=== PATIENT | female | born 1960 | race Caucasian/White ===

== ENCOUNTER → 2019-12-20 14:34 | Outpatient (CLI) | payer BC, SELFPAY ==
--- NOTE | ~2019-12-20 | XR_ITS ---
XR ankle RT min 3V 12/20/2019 15:10 Indication: Ankle pain Procedure: 4 views of each ankle Comparison: No prior studies for comparison. Findings: Osteopenia. Ankle mortise intact bilaterally. No acute fracture or traumatic malalignment. There are degenerative calcaneal enthesophytes bilaterally at the plantar surface. Anatomic alignment . Mild degenerative changes of the midfoot. No focal soft tissue abnormality. No radiopaque foreign b odies. Impression: 1: No acute bone or joint abnormality. 2: Bilateral degenerative calcaneal enthesophytes. 3: Osteopenia. Reviewed, dictated and finalized at location B. UNITY SERVICES OFFICER Impression: 1: No acute bone or joint abnormality. 2: Bilateral degenerative calcaneal enthesophytes. 3: Osteopenia.
--- NOTE | ~2019-12-20 | XR_ITS ---
EXAMINATION: XR ankle LT min 3V EXAM DATE: 12/20/2019 15:10 INDICATION: No known recent injury provided at this time. Pain of the left ankle. TECHNIQUE: Left ankle frontal, lateral and oblique projections obtained and reviewed. Correlation is made to contralateral ankle same date. FINDINGS: The left ankle mortise appears intact. There is mild left ankle and polyarticular midfoot primary osteoarthritis. Small inferior calcaneal spur. There are no acute fractures or dislocations identified. There is no subcutaneous gas. The soft tissue is unremarkable. There are no radiopaq ue foreign bodies. IMPRESSION: Mild degenerative changes. Reviewed, dictated and finalized at location A. Y BUS DRIVER IMPRESSION: Mild degenerative changes.
--- NOTE | ~2019-12-20 | XR_ITS ---
XR knee LT min 4V, XR knee RT min 4V 12/20/2019 15:09 Indication: Knee pain. No known trauma. Procedure: 4 views of each knee Comparison: No prior studies for comparison. Findings: There is mild-severe tricompartment osteoarthritis of both knees, most advanced in the medi al compartments bilaterally. No acute fracture, subluxation or dislocation. No significant joint effu srikanth. Impression: 1: Mild-severe tricompartment osteoarthritis of bilateral knees, most severe in the medial compartmen ts. Reviewed, dictated and finalized at location B. OT GRADER INSPECTOR Impression: 1: Mild-severe tricompartment osteoarthritis of bilateral knees, most severe in the medial compartments. Impression: 1: Mild-severe tricompartment osteoarthritis of bilateral knees, most severe in the medial compartments.
== END ==
PROVIDERS: Visit Provider Nurse Practitioner Adult Health
DX: M17.0 Bilateral primary osteoarthritis of knee (principal); M85.871 Other specified disorders of bone density and structure, right ankle and foot
CPT/HCPCS: 73564; 73610

== ENCOUNTER → 2022-03-05 13:37 | Outpatient (CLI) | payer BC, SELFPAY ==
--- NOTE | ~2022-03-05 | MM_ITS ---
EXAMINATION: MM screening [facility] BI w araceli HISTORY: Screening mammogram TECHNIQUE: Craniocaudal and mediolateral oblique 3-D tomosynthesis images were obtained and synthetic 2-D images were generated. CAD analysis was submitted and interpreted. COMPARISON: 07/01/2019, 10/29/2016, 10/17/2015 BREAST PARENCHYMAL COMPOSITION: There are scattered areas of fibroglandular density. FINDINGS: RIGHT BREAST: There is no suspicious mass, calcification, or architectural distortion to suggest sergei gnancy. There has been no significant interval change. LEFT BREAST: There are grouped indeterminate calcifications middle third of the upper outer quadrant of the breast. IMPRESSION: 1. Indeterminate left breast calcifications. 2. Magnification views are recommended. BI-RADS Category 0: Incomplete: Needs additional imaging evaluation. Reviewed, dictated and finalized at location A.
== END ==
PROVIDERS: PCP Nurse Practitioner Obstetrics & Gynecology; Visit Provider Nurse Practitioner Obstetrics & Gynecology
DX: Z12.31 Encounter for screening mammogram for malignant neoplasm of breast (principal); R92.8 Other abnormal and inconclusive findings on diagnostic imaging of breast
CPT/HCPCS: 77063; 77067

== ENCOUNTER → 2022-03-25 08:42 | Outpatient (CLI) | payer BC, SELFPAY ==
--- NOTE | ~2022-03-25 | MM_ITS ---
EXAMINATION: MM diagnostic mammo unilat LT HISTORY: Left breast calcifications on screening mammogram TECHNIQUE: Magnification views of the left breast were performed. CAD analysis was submitted and inte rpreted. COMPARISON: 03/05/2022, 07/01/2019, 10/29/2016 FINDINGS: There are grouped coarse heterogeneous calcifications in the middle third of the upper oute r quadrant of the left breast at the 2:00 location 8.5 cm from the nipple. No associated mass is iden tified. IMPRESSION: 1. Indeterminate left breast calcifications. 2. Stereotactic biopsy is recommended. BI-RADS category 4, suspicious findings. Reviewed, dictated and finalized at location A.
== END ==
PROVIDERS: PCP Nurse Practitioner Obstetrics & Gynecology; Visit Provider Nurse Practitioner Obstetrics & Gynecology
DX: R92.8 Other abnormal and inconclusive findings on diagnostic imaging of breast (principal)
CPT/HCPCS: 77065

== ENCOUNTER → 2022-09-16 12:00 | Outpatient (CLI) | payer BC, SELFPAY ==
--- NOTE | ~2022-09-16 | XR_ITS ---
XR hip RT 2V w AP pelvis DATE: 09/16/2022 12:19 INDICATION: Right hip pain TECHNIQUE: AP pelvis. AP and lateral views of right hip COMPARISON: None FINDINGS: There is osteopenia. Moderate to moderately severe multilevel lumbar degenerative disc disease. The pubic symphysis and sacroiliac joints are intact. No pelvic fracture or bone destruction is detec shon. There is asymmetric prominent right hip joint space narrowing civil engineering assistant with moderate right hip osteo arthritis. IMPRESSION: Moderately prominent right hip osteoarthritis Osteopenia Multilevel degenerative disease of the lumbar spine Reviewed, dictated and finalized at location B. HEALTH TRAVEL OT
== END ==
PROVIDERS: PCP Internal Medicine; Visit Provider Physician Assistant
DX: M25.551 Pain in right hip (principal); M16.11 Unilateral primary osteoarthritis, right hip; M85.80 Other specified disorders of bone density and structure, unspecified site; M51.36 Other intervertebral disc degeneration, lumbar region
CPT/HCPCS: 73502

== ENCOUNTER → 2023-05-12 12:02 | Outpatient (CLI) | payer BC, SELFPAY ==
--- NOTE | ~2023-05-12 | MM_ITS ---
EXAMINATION: MM screening [facility] BI w araceli HISTORY: Screening mammogram TECHNIQUE: Craniocaudal and mediolateral oblique 3-D tomosynthesis images were obtained and synthetic 2-D images were generated. CAD analysis was submitted and interpreted. COMPARISON: No prior mammogram is available for comparison at this institution. BREAST PARENCHYMAL COMPOSITION: There are scattered areas of fibroglandular density. FINDINGS: Occasional benign calcifications. History of benign*detected biopsy of left breast microcal cifications in 2021. There is no evidence of suspicious mass, calcification, or architectural distort ion to suggest malignancy in either breast. There has been no suspicious interval change. IMPRESSION: 1. No mammographic evidence of malignancy. 2. Recommend routine screening mammography in one year. BI-RADS Category 2: Benign finding(s). Reviewed, dictated and finalized at location L.
== END ==
PROVIDERS: PCP Nurse Practitioner Obstetrics & Gynecology; Visit Provider Nurse Practitioner Obstetrics & Gynecology
DX: Z12.31 Encounter for screening mammogram for malignant neoplasm of breast (principal)
CPT/HCPCS: 77063; 77067

== ENCOUNTER 2023-10-27 10:52 | Outpatient (CLI) | payer BC, SELFPAY ==
--- NOTE | ~2023-10-27 | XR_ITS ---
XR knee RT min 4V DATE: 10/27/2023 11:22 INDICATION: Right knee pain TECHNIQUE: [place] and standing AP, PA and lateral views COMPARISON: November 26, 2022 right knee FINDINGS: There is severe medial, joint space narrowing with near [id number]. There is periarticula r spurring at all 3 compartments. Lateral compartment joint space is relatively preserved. No fracture or dislocation, periosteal reaction or bone destruction, radiopaque intra-articular loose body or chondrocalcinosis is detected. IMPRESSION: Tricompartment osteoarthritis, severe at the medial compartment with near [id number] Reviewed, dictated and finalized at location L. SELLER IMPRESSION: Tricompartment osteoarthritis, severe at the medial compartment wit h near [id number]
--- NOTE | ~2023-10-27 | XR_ITS ---
XR hip RT min 2V DATE: 10/27/2023 11:22 INDICATION: Right hip pain TECHNIQUE: AP and lateral views COMPARISON: November 26, 2022 AP pelvis, AP and lateral views of right hip FINDINGS: There is degenerative spurring and severe right hip joint space narrowing consistent with s evere right hip osteoarthritis. Osteopenia. No fracture, dislocation, avascular necrosis or bone destruction is detected. Normal alignment at the pubic symphysis and right sacroiliac joint. IMPRESSION: Severe right hip osteoarthritis Reviewed, dictated and finalized at location L. CTOR BUSINESS TRAVEL
--- NOTE | ~2023-10-27 | XR_ITS ---
XR knee LT min 4V DATE: 10/27/2023 11:22 INDICATION: Left knee pain TECHNIQUE: Standing AP, PA, lateral views, sunrise view COMPARISON: 01/16/2020 left knee FINDINGS: There is severe loss of medial compartment joint space with [id number]. There is periarti cular spurring at the medial and patellofemoral compartments. There is mild periarticular spurring at the lateral compartment. Lateral compartment joint space appears well preserved. Small suprapatellar knee joint effusion is suggested. No fracture or dislocation, periosteal reaction or bone destruction, radiopaque intra-articular loose body or chondrocalcinosis is detected. IMPRESSION: Tricompartment osteophytes, most severe at medial compartment with [id number] Reviewed, dictated and finalized at location L. E SYSTEMS ENGINEER IMPRESSION: Tricompartment osteophytes, most severe at medial compartment with [id number]
== END 2023-10-27 10:53 | disposition home or self-care (01) ==
PROVIDERS: PCP Nurse Practitioner Obstetrics & Gynecology; Visit Provider Orthopaedic Surgery
DX: M16.11 Unilateral primary osteoarthritis, right hip (principal); M17.11 Unilateral primary osteoarthritis, right knee; M25.762 Osteophyte, left knee; M25.551 Pain in right hip; M25.562 Pain in left knee; M25.561 Pain in right knee
CPT/HCPCS: 73502; 73564

== ENCOUNTER 2023-11-04 12:54 | Outpatient (CLI) | payer BC, SELFPAY ==
--- NOTE | 2023-11-04 13:27 | ECG_ITS ---
Measurements Intervals [place] Rate: 60 P: 56 [place]: 160 QRS: 24 QRSD: 102 T: 23 QT: 431 QTc: 431 Interpretive Statements SINUS RHYTHM LOW QRS VOLTAGE IN PRECORDIAL LEADS BORDERLINE ECG NO PREVIOUS ECG AVAILABLE FOR COMPARISON Electronically Signed On 11-04-2023 13:56:23 FLATWORK ASSEMBLER by Gadiel Sandoval D.O.
[2023-11-04 14:08] LABS: Albumin Level 4.4 g/dL (3.5-5.1); Estimated Glomerular Filt Rate > 60; Glucose 76 mg/dL (65-110)
[2023-11-04 14:23] LABS: Hematocrit 42.9 % (37.0-47.0); Hemoglobin 13.6 g/dL (12.0-15.0)
[2023-11-04 15:11] LABS: Urine Cotinine NEGATIVE
== END 2023-11-04 12:55 | disposition home or self-care (01) ==
PROVIDERS: Visit Provider Orthopaedic Surgery
DX: E78.5 Hyperlipidemia, unspecified (principal); M16.11 Unilateral primary osteoarthritis, right hip; R94.31 Abnormal electrocardiogram [ECG] [EKG]
CPT/HCPCS: 80307; 82040; 82565; 82947; 85014; 85018; 93005

== ENCOUNTER 2024-01-08 11:58 | Outpatient (CLI) | payer BC, SELFPAY ==
[2024-01-08 13:23] LABS: Basophils Absolute Auto 0.1 K/mm3 (0.0-0.1); Basophils Percent Auto 0.8 % (0.2-1.2); Eosinophils Absolute Auto 0.7 K/mm3 (0-0.3); Eosinophils Percent Auto 7.8 % (0-4.4); Hematocrit 40.2 % (37.0-47.0); Hemoglobin 13.4 g/dL (12.0-15.0); Immature Granulocyte Absolute 0.03 K/mm3 (0.00-0.031); Immature Granulocyte Percent A 0.3 % (0-0.5); Lymphocytes Absolute Auto 2.68 K/mm3 (0.9-3.2); Lymphocytes Percent Auto 29.8 % (18.3-44.2); Mean Corpuscular HGB Conc 33.3 g/dl (32-36); Mean Corpuscular Hemoglobin 33.7 pg (26-34); Mean Platelet Volume 10.6 fl (7.4-10.4); Monocytes Absolute Auto 0.5 K/mm3 (0.1-0.6); Monocytes Percent Auto 5.7 % (2.6-8.5); Neutrophils Percent Auto 55.6 % (45.5-73.1); Platelet Count Result 243 k/mm3 (150-375); Red Blood Count 3.98 M/mm3 (4.2-5.4); Red Cell Distribution Width 12.6 % (11.5-14.5)
[2024-01-08 13:33] LABS: Albumin Level 4.6 g/dL (3.5-5.1); Estimated Glomerular Filt Rate > 60; Glucose 90 mg/dL (65-110)
[2024-01-08 14:32] LABS: MRSA (PCR) NOT DETECTED (NOT DETECTE)
[2024-01-08 15:03] LABS: Urine Cotinine NEGATIVE
== END 2024-01-08 11:59 | disposition home or self-care (01) ==
LOC: ANHSURGERY 12:01
PROVIDERS: Visit Provider Orthopaedic Surgery
DX: M16.11 Unilateral primary osteoarthritis, right hip (principal); Z01.818 Encounter for other preprocedural examination
CPT/HCPCS: 80307; 82040; 82565; 82947; 83036; 85025; 87641

== ENCOUNTER 2024-02-02 00:22 | Day surgery (SDC) | payer BC, SELFPAY ==
[2024-01-08 12:07] VITALS: BMI 39.9
--- NOTE | 2024-01-08 12:29 | PC.NURSE ---
Report to the Outpatient Waiting Room, entrance under the green pavilion located off [facility], at time __0600 on date _02/02/24 . Planned Procedure Time: ____729___. Time changes happen often and if your time is changed the preop area will call you the afternoon before. - You and your visitor will be asked to self-screen and do not enter if you have any COVID symptoms. - A mask is optional within the hospital at this time. Patients may have clear liquids (water, carbonated beverages, clear teas, apple juice) until 3 hours prior to surgery ( 4:30 am)with a maximum of 20 ounces. - No food from midnight until time of surgery - Infants may have breast milk until 4 hours before surgery, infant formula 6 hours prior to surgery. - Children will be allowed to drink immediately following surgery. If applicable, please bring a bottle or sippy cup to assist with drinking. Juice, water, soda, and popsicles are readily available. For infants on formula, please bring formula the day of surgery. Pacifiers are allowed. Take the following medications with a SIP of water the morning of surgery: ____NONE DO NOT STOP ANY OF YOUR OTHER PRESCRIPTION MEDICATIONS PRIOR TO SURGERY ?EXCEPT THE FOLLOWING Medications to discontinue per physician HOLD IBUPROFEN 7 DAYS PRE OP PER DR CARRANZA.LAST DOSE 01/25/24 MAY TAKE TYLENOL IF NEEDED FOR PAIN Please no make-up, nail indian, hairspray, perfume, deodorant, or body powder the day of surgery. No jewelry (including any body piercings) or valuables the day of surgery, leave them at home. Please take a shower or bath the night before, or the morning of, surgery with an antibacterial soap. Wear comfortable, loose fitting clothing. Children are encouraged to wear pajamas. - Jewelry must be removed prior to entering the operating room. Rings and piercings that are not removed may be cut off. - The hospital will not accept responsibility for valuables. - Please leave all valuables, including medications, at home the day of surgery. If you are going home after surgery, a licensed dedicated local truck driver must drive you home. - NO public transportation without another adult if you receive anesthesia. - We recommend that an adult stay with you for 24 hours following discharge. - We also recommend that you do not drive, make important decision, drink alcoholic beverages, or take any drugs that were not prescribed by your health care provider for at least 24 hours after your discharge time. Follow any additional instructions given to you from your surgeon. If you or anyone in your household have experienced Covid symptoms in the past week, please notify your surgeon or the nurse liaison at the phone number below for possible testing. VERBAL AND WRITTEN instructions given to __PATIENT AND SPOUSE DAVID and asked if any additional questions and then verbalized understanding. Patient advised to call surgeon office or pre surgery nurse liaison [phone] if any additional questions.
[2024-01-08 12:47] VITALS: BP 177/78; PULSE 60; RESP 18; TEMP 36.7; O2SAT 97
[2024-02-02] VITALS (15 sets, daily range): BP systolic 124–169; BP diastolic 65–94; PULSE 61–90; RESP 10–20; TEMP 36.1–36.6; O2SAT 90–100
--- NOTE | ~2024-02-02 | XR_ITS ---
EXAMINATION: XR hip RT min 2V DATE: 02/02/2024 12:07 INDICATION: Right total hip arthroplasty TECHNIQUE: 2 views right hip FINDINGS: There is a right total hip arthroplasty in expected position. Subcutaneous gas with soft t issue swelling are consistent with recent surgery. IMPRESSION: 1. Recent right total hip arthroplasty. Reviewed, dictated and finalized at location B.
[2024-02-02] MEDS: LACTATED RINGERS 1,000 ML 30 ML IV CONT ×3 (08:50→12:39)
--- NOTE | 2024-02-02 09:06 | WPDHPUPDATE1 ---
History and Physical Update Update Date/Time: 02/02/24 09:06 History and Physical has been reviewed, including an updated exam of the patient. There are NO changes in the patient's condition. Risks, benefits, and alternatives have been discussed and questions answered. Patient agrees to proceed with procedure. Correct operative side is right.
--- NOTE | 2024-02-02 09:24 | WPDANESEPPF ---
Anes - Initial Pre Proc Eval Procedure: Operation Date: 02/02/24 10:30 Proposed Procedures p Right Total Hip Arthroplasty - Adam Guerra MD Date/Time: 02/02/24 09:24 Surgeon: Adam Guerra MD Pre Op Diagnosis: primary oa right hip Patient Data Age: 63 Gender: F Height: 1.6 m Weight: 102.1 kg Last Vital Signs Temp 98.0 F 01/08/24 12:47 Pulse 60 01/08/24 12:47 Resp 18 01/08/24 12:47 BP 177/78 H 01/08/24 12:47 Pulse Ox 97 01/08/24 12:47 O2 Del Method Room Air 01/08/24 12:47 Allergies Allergy/AdvReac Type Severity Reaction Status Date / Time No Known Allergies Allergy Verified 01/08/24 12:09 Home Medications Medication Instructions Recorded Confirmed Type bupropion HCl 300 mg 24 hr tablet, 300 mg PO PRN PRN TO HELP STOP 11/11/22 02/02/24 History extended release SMOKING ibuprofen 800 mg tablet 800 mg PO Q6H PRN Pain 01/08/24 02/02/24 History aspirin 81 mg tablet,delayed 81 mg PO BID 14 days #28 tabs 02/02/24 Rx release oxycodone-acetaminophen 5 mg-325 1 - 2 tablet PO Q4-6H PRN pain #30 02/02/24 Rx mg tablet tabs Patient hx anesthesia problems: none Family hx anesthesia problems: none Results Review: All pre-operative results and documents have been reviewed as part of the pre-operative evaluation. [facility] Past Medical History Medical History Acute constipation Anxiety Arthritis Fatigue History of stress test Hyperlipemia Night sweats Shortness of breath Surgical History Surgical History H/O colposcopy with cervical biopsy (~01/2022) History of tooth extraction Hx of breast biopsy (~04/2022) Hx of cholecystectomy (~05/2000) Family History Family History Sibling Family history of lung cancer Asthma Mother Family history of primary malignant neoplasm of liver Social History Social History Smoking packs per day: 1.5 Smoking cigarettes per day: 30.0 Years smoked: 29 Smoking pack-years: 43.50 Smoking status: Former smoker Tobacco type: cigarettes Smoking end date: 10/19/20 Additional smoking assessment comments: DENIES ANY FORM OF TOBACCO USE Alcohol intake: current Drinks per week: 8 Do You Feel Safe in your Home?: Yes Lack of Transportation: No Lack of Food: Never True Current Housing: I Have Housing Concerned About Future Housing: No Difficulty Paying Gas/Electric Bills: No Difficulty Paying for Meds: No Currently Unemployed: No Education: Associate Degree Difficulty w/ Childcare or Family Care: No Living arrangements: with family Spiritual care concerns: No Anes - Eval Final PreProcedure Day of Procedure 02/02/24 09:24 Patient weight: obese Heart: regular rate and rhythm Lungs: clear to auscultation Airway: Mallampati scale Neurological: alert and oriented Last oral intake: >/= 8 hours ASA classification: III Emergent: no Anesthetic plan: proceed Anesthesia type and monitoring: general ETT and standard monitoring Results Review: All pre-operative results and documents have been reviewed as part of the pre-operative evaluation. Hyperlipidemia. Pt reports stress test approx 2010 nml. No interval change in cp or sob, exercise tolerance limited by hip/knee pain. Informed Consent: The patient's anesthetic plan and its attendant risks and benefits were discussed with the patient/family/POA. Questions were solicited and answers provided to the satisfaction of the patient/family/POA.
[2024-02-02] MEDS: TRANEXAMIC ACID 1,000MG/ISO100 1,000 MG/100 ML BAG 200 MG IVPB (09:38)
[2024-02-02] MEDS: ceFAZolin 2 GM/D5W 50 ML 2 GM/50 ML BAG IVPB ×2 (10:00→17:02)
[2024-02-02] MEDS: SODIUM CHLORIDE 0.9% IV 37.7 ML, MORPHINE SULFATE INJ (*CRX) 2 MG, ROPivacaine HCL 1% 2... INFILTRATE (10:33)
--- NOTE | 2024-02-02 11:37 | W.PM.PROC2 ---
Procedure Note - Detailed Date of Procedure 02/02/24 Pre-op Diagnosis primary oa right hip Post-op Diagnosis Same Procedure Performed Right Total Hip Arthroplasty Surgeon Adam Guerra MD [employer] Puja Garrison PA-C Anesthesia General Findings Morbid obesity. Bone quality satisfactory. Prevena negative pressure wound dressing placed to address high risk of wound complications. Description of Procedure The patient was given preoperative antibiotics. A general anesthetic was administered. The patient was carefully placed in the lateral decubitus position on the PEG board. The shoulders and hips were carefully positioned for component and leg length positioning reference. The hip was prepped and draped in the usual sterile fashion. A longitudinal incision was created over the posterior aspect of the greater trochanter. Careful dissection was brought down through the deep fascia with electrocautery. A minimally invasive optimized posterior approach to the hip was performed. The short external rotators and capsule were taken down in an L-shaped capsulotomy. The tissue was tagged for later repair using number 2 high strength suture. The femoral neck was measured and taken in situ. The femoral head was removed. The acetabulum was carefully exposed. The inferior capsule was released. The labrum was resected. The acetabulum was sequentially reamed to the intended cup size. The cup was impacted into position with excellent press-fit. Typical anatomic landmarks, including the bony contact points as well as the inferior transverse acetabular ligament were used to confirm cup positioning with preoperative templating. Attention was turned to the femur, which was carefully exposed. The hip was reamed and then broached sequentially. Excellent press-fit was obtained with the broach. The hip was trialed. Measurements were utilized, including the lesser trochanter as well as the center of the femoral head and the tip of the trochanter, and excellent assessment of the offset and leg lengths were confirmed. The real component was impacted into position. Trialing confirmed appropriate leg length and offset with soft tissue balancing as well apparent feel of the leg, both at the knee and the heel. Soft tissues were assessed using the the iliotibial band. Reduction of the posterior capsule and external rotators were also used as a secondary assessment. The hip was copiously irrigated with pulsatile lavage periodically throughout the procedure. The real components were then assembled and reduced. The hip was stable throughout typical maneuvers, including extension, external rotation to 70 degrees, the position of sleep as well as flexion to 90 degrees with internal rotation past 35 degrees. The shake test confirmed stability without impingement. Osteophytes were removed as necessary. The short external rotators and capsule were repaired back to the posterior trochanter through drill holes. The deep fascia was repaired with running number 2 barbed suture, followed by 2-0 Stratafix suture and 3-0 Stratafix suture in the dermis. Steri-Strips were placed on the skin, followed by a sterile occlusive dressing. There were no complications. Meticulous hemostasis was maintained with the AquaMantys device. The patient was brought to the recovery room in stable condition. There were no complications. Physician after school program assistant, Puja Garrison PA-C, required for surgery; including patient positioning, draping, tissue retraction, maintaining instrument position, hip dislocation/ relocation, wound closure, and dressing placement. Implants The Accolade II hip stem, 127 degree size 4 , was utilized with excellent press-fit. The 48 mm Trident II acetabular component was impacted with excellent press-fit stability. Standard polyethylene liner the +0, 36 mm Biolox ceramic femoral head was utilized. Estimated Blood Loss 300 Drains No Packing No Pathology None sent Com
[2024-02-02] MEDS: fentaNYL CITRATE INJ (*CRX) 100 MCG/2 ML VIAL 25 MCG IV PUSH ×8 (12:00→12:25)
[2024-02-02] MEDS: HYDROmorphone HCL INJ (*CRX) 1 MG/ML SYR 0.25 MG IV PUSH ×8 (12:41→13:19)
--- NOTE | 2024-02-02 13:23 | SUR.PHASEI ---
pt resting comfortably. family informed. taking pt upstairs.
--- NOTE | 2024-02-02 13:35 | ADMGEN ---
This patient, Karissa Manning, was admitted to [facility] Room 324-02. Patient/family oriented to hospital policies and general routines including ID bracelet, bed and alarms, visiting hours, pain management, procedures, bathroom and other care routines, personal items, smoking policy, room service/diet, and visiting hours. Information on how to activate the Rapid Response Team has been discussed. Patient/Family are encouraged to report perceived risks to care and to ask questions if they do not understand what they are told or what they should do.
[2024-02-02] MEDS: SENNA/DOCUSATE SODIUM TABLET 2 TAB PO (17:02)
[2024-02-02] MEDS: ASPIRIN 81 MG ENTERIC TABLET PO (17:02)
[2024-02-02] MEDS: oxyCODONE HCL (*CRX) 5 MG TAB IR PO (17:03)
[2024-02-02] MEDS: ACETAMINOPHEN 500 MG TABLET 1000 MG PO ×2 (17:03→20:19)
[2024-02-02] MEDS: CYCLOBENZAPRINE HCL 10 MG TABLET PO (17:03)
[2024-02-02] MEDS: oxyCODONE HCL (*CRX) 5 MG TAB IR 10 MG PO (20:19)
[2024-02-02] MEDS: FAMOTIDINE 20 MG TABLET PO (20:19)
[2024-02-02] MEDS: traMADol HCL (*CRX) 50 MG TABLET PO (22:41)
[2024-02-03] MEDS: oxyCODONE HCL (*CRX) 5 MG TAB IR 10 MG PO ×3 (00:26→08:22)
[2024-02-03] MEDS: ACETAMINOPHEN 500 MG TABLET 1000 MG PO ×2 (03:02→08:22)
[2024-02-03] MEDS: ceFAZolin 2 GM/D5W 50 ML 2 GM/50 ML BAG IVPB ×2 (03:08→09:40)
[2024-02-03] MEDS: SODIUM CHLORIDE 0.9% IV 250 ML 20 ML (03:08)
[2024-02-03] MEDS: diphenhydrAMINE HCl INJ 50 MG/ML VIAL 25 MG IV PUSH (03:08)
[2024-02-03] MEDS: CYCLOBENZAPRINE HCL 10 MG TABLET PO (03:09)
[2024-02-03 03:10] VITALS: BP 133/71; PULSE 73; RESP 18; TEMP 36.6; O2SAT 99
[2024-02-03 06:35] LABS: Basophils Percent Auto 0.3 % (0.2-1.2); Eosinophils Absolute Auto 0.1 K/mm3 (0-0.3); Eosinophils Percent Auto 0.5 % (0-4.4); Hematocrit 35.2 % (37.0-47.0); Hemoglobin 10.9 g/dL (12.0-15.0); Immature Granulocyte Absolute 0.05 K/mm3 (0.00-0.031); Immature Granulocyte Percent A 0.5 % (0-0.5); Lymphocytes Absolute Auto 1.84 K/mm3 (0.9-3.2); Mean Corpuscular Volume 106.7 fl (80-100); Mean Platelet Volume 11.2 fl (7.4-10.4); Monocytes Absolute Auto 0.8 K/mm3 (0.1-0.6); Monocytes Percent Auto 8.1 % (2.6-8.5); Neutrophils Absolute Auto 6.5 K/mm3 (1.3-6.7); Neutrophils Percent Auto 70.6 % (45.5-73.1); Platelet Count Result 170 k/mm3 (150-375); Red Cell Distribution Width 13.5 % (11.5-14.5); White Blood Count 9.2 K/mm3 (4.5-10.0)
[2024-02-03 06:46] LABS: Anion Gap 4 mmol/L (4-12); Blood Urea Nitrogen 19 mg/dL (7-17); Calcium 8.7 mg/dL (8.4-10.2); Carbon Dioxide 24 mmol/L (22-30); Chloride 108 mmol/L (98-107); Estimated CRCL calculation 92 ml/min; Estimated Glomerular Filt Rate > 60; Glucose 95 mg/dL (65-110); Potassium 4.3 mmol/L (3.4-5.0); Sodium 136 mmol/L (137-145)
[2024-02-03 07:10] VITALS: BP 137/69; PULSE 77; RESP 18; TEMP 36.9; O2SAT 100
[2024-02-03 07:13] LABS: Macrocytosis 1+ (NORMAL); Platelet Estimate Adequate (Adequate); Schistocytes None Seen
--- NOTE | 2024-02-03 07:26 | P.PNAN_ITS ---
Anes - Prog Note Post-Op Date/Time: 02/03/24 07:26 Cardiovascular status: normal Respiratory status: normal Airway patency: baseline Mental status: baseline Post-Op hydration status: normal Vital Signs: Last Vital Signs Temp 97.9 F 02/03/24 03:10 Pulse 73 02/03/24 03:10 Resp 18 02/03/24 03:10 BP 133/71 02/03/24 03:10 Pulse Ox 99 02/03/24 03:10 O2 Del Method Room Air 02/02/24 13:40 O2 Flow Rate 2 02/02/24 13:22 Pain Score (VAS): 0/10 I/O: Intake & Output 02/02/24 02/02/24 02/03/24 15:59 23:59 07:59 Intake Total 1150 272 Balance 1150 272 Laboratory Tests 02/03/24 06:01 02/03/24 06:01 02/02/24 02/03/24 09:17 06:01 WBC 9.2 RBC 3.30 L Hgb 10.9 L Hct 35.2 L MCV 106.7 H MCH 33.0 MCHC 31.0 L RDW 13.5 Plt Count 170 MPV 11.2 H Immature Gran % (Auto) 0.5 Neut % (Auto) 70.6 Lymph % (Auto) 20.0 [place] % (Auto) 8.1 Eos % (Auto) 0.5 Baso % (Auto) 0.3 Lymph # (Auto) 1.84 [place] # (Auto) 0.8 H Eos # (Auto) 0.1 Baso # (Auto) 0.0 Abs Immat Gran (auto) 0.05 H Absolute Neuts (auto) 6.5 Absolute Nucleated RBC 0.000 Nucleated RBC % 0.0 Platelet Estimate Adequate Macrocytosis 1+ Schistocytes None seen Sodium 136 L Potassium 4.3 Chloride 108 H Carbon Dioxide 24 Anion Gap 4 BUN 19 H Creatinine 0.60 L Estim Creat Clear Calc 92 Estimated GFR > 60 Glucose 95 Calcium 8.7 Blood Type A Positive Antibody Screen Negative Post-procedural complaints: none Patient Feedback: Patient satisfied with anesthetic care.
[2024-02-03] MEDS: ASPIRIN 81 MG ENTERIC TABLET PO (08:22)
[2024-02-03] MEDS: SENNA/DOCUSATE SODIUM TABLET 2 TAB PO (08:22)
[2024-02-03] MEDS: FAMOTIDINE 20 MG TABLET PO (08:22)
--- NOTE | 2024-02-03 08:52 | PM.DS ---
DS: Admitting Diagnosis Discharge Date 02/03/24 Admitting Diagnosis hip arthritis. DS: Discharge Diagnosis Discharge Diagnosis (1) Status post total hip replacement, right: Code(s): Z96.641 - Presence of right artificial hip joint Status: Acute Assessment and Plan: Postop day 1: Right Total hip arthroplasty. Patient tolerated procedure well. No complications. Pain manageable with pain medication. No numbness or tingling. Provena wound vac dressing applied due to patient being high risk for wound complications given her body habitus. No drainage. Patient may remove this at 1 week post op. We had a lengthy discussion regarding postoperative wound care, limitations, expectations, and exercises. Patient shows good understanding. Patient has had initial physical therapy and is tolerating it well. DVT prophylaxis: 81 mg baby aspirin b.i.d. for 14 days. Short frequent walks. Pain medication: Percocet. Ibuprofen. Patient has followup appointment with Dr. Guerra in 3 weeks DS: Summary Hospital Course Reason for hospitalization: Total hip arthroplasty Hospital Course: Patient tolerated procedure well. Has had initial PT/OT and made good progress. Status at Discharge Functional status at discharge: uses cane/walker Overall status at discharge: patient is progressing back to baseline Time Spent with Patient Time attestation: Total time spent providing and/or coordinating discharge services: Exam Narrative: Overweight 63 y/o female. Resting comfortably in bed. Wearing compression socks bilaterally. Dressing dry and intact with no drainage. Mild swelling. No ecchymosis. No erythema. No hematoma. Range of motion limited due to pain. Calf nontender. Thigh nontender. Neurologic status intact. No varicosities. Distal pulses palpable. DS: Data Data Completed and Pending Labs on day of discharge: Labs from last 24 hours 02/03/24 02/02/24 06:01 09:17 WBC 9.2 RBC 3.30 L Hgb 10.9 L Hct 35.2 L MCV 106.7 H MCH 33.0 MCHC 31.0 L RDW 13.5 Plt Count 170 MPV 11.2 H Immature Gran % (Auto) 0.5 Neut % (Auto) 70.6 Lymph % (Auto) 20.0 Washburn % (Auto) 8.1 Eos % (Auto) 0.5 Baso % (Auto) 0.3 Lymph # (Auto) 1.84 Washburn # (Auto) 0.8 H Eos # (Auto) 0.1 Baso # (Auto) 0.0 Abs Immat Gran (auto) 0.05 H Absolute Neuts (auto) 6.5 Absolute Nucleated RBC 0.000 Nucleated RBC % 0.0 Platelet Estimate Adequate Macrocytosis 1+ Schistocytes None seen Sodium 136 L Potassium 4.3 Chloride 108 H Carbon Dioxide 24 Anion Gap 4 BUN 19 H Creatinine 0.60 L Estim Creat Clear Calc 92 Estimated GFR > 60 Glucose 95 Calcium 8.7 Blood Type A Positive Antibody Screen Negative Discharge Plan Discharge Patient Disposition: Home, Self-Care Discharge Instructions: See green instruction sheets Remove provena dressing at 7 days post op or if battery dies beforehand. Stand Alone Forms: General Discharge Instructions Follow-up/Referrals: Puja Garrison PA [Physician Fashion Journalist] - Discharge Medications: New aspirin 81 mg tablet,delayed release (DR/EC) 81 mg PO BID 14 Days Qty: 28 0RF oxycodone-acetaminophen 5-325 mg tablet 1 - 2 tablet PO Q4-6H MDD 6 PRN (Reason: pain) Qty: 30 0RF Continued ibuprofen 800 mg Tablet 800 mg PO Q6H PRN (Reason: Pain)
[2024-02-03] MEDS: traMADol HCL (*CRX) 50 MG TABLET PO (11:34)
== END 2024-02-03 12:30 | disposition home or self-care (01) ==
LOC: ANHSURGERY 08:10 → ANH3MEDSUR 13:27
PROVIDERS: Physician Assistant Surgical; Visit Provider Orthopaedic Surgery
PROC: (CPT 27130; principal; 2024-02-02 10:30)
DX: M16.11 Unilateral primary osteoarthritis, right hip (principal); F41.9 Anxiety disorder, unspecified; Z79.82 Long term (current) use of aspirin; Z87.891 Personal history of nicotine dependence; E66.9 Obesity, unspecified; Z68.39 Body mass index [BMI] 39.0-39.9, adult
CPT/HCPCS: 27130; 36415; 73502; 80048; 85025; 86850; 86900; 86901; 97110; 97161; 97165; 97530; 97535; A9270; C1776; J0171; J0690; J1100; J1170; J1200; J1885; J2250; J2270; J2405; J2795; J3010; J7050; J7120

== ENCOUNTER 2024-03-23 10:05 | Outpatient (CLI) | payer BC, SELFPAY ==
--- NOTE | ~2024-03-23 | XR_ITS ---
AP and lateral views of the right hip Clinical history: Arthroplasty Findings: No acute fracture or dislocation is seen. Right hip arthroplasty in place, without evidence of hardware complication. Soft tissues are unremarkable. Impression: No acute abnormality. Right hip arthroplasty in place. Reviewed, dictated and finalized at location . Impression: No acute abnormality. Right hip arthroplasty in place.
== END 2024-03-23 10:06 | disposition home or self-care (01) ==
LOC: ANHIMG 10:06
PROVIDERS: Visit Provider Orthopaedic Surgery
DX: Z47.1 Aftercare following joint replacement surgery (principal)
CPT/HCPCS: 73502

== ENCOUNTER 2025-01-11 13:10 | Outpatient (CLI) | payer MEDICARE, SELFPAY ==
--- NOTE | ~2025-01-11 | XR_ITS ---
XR hip RT 2V w AP pelvis 01/11/2025 13:35 Indication: Right hip pain. Procedure: AP pelvis and 2 views right hip Comparison: 03/23/2024 Findings: There is a right total hip arthroplasty. Prosthesis well seated. No evidence for loosening. Pelvic rings are intact. No acute fracture or traumatic malalignment. Sacral foramen are symmetric. 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 Impression: 1: No acute bone or joint abnormality. Reviewed, dictated and finalized at location A. Impression: 1: No acute bone or joint abnormality.
--- OUTSIDE RECORDS SUMMARY | 2025-01-11 14:26 | XMS_ITS | Clinical Summary ---
Author Organization [facility] Address [facility] [place] [address] Care Team Providers Care Manager Of Training And Development Name Role Phone Dunia Velarde PA-C Primary Care Provider [phone] Allergies No known active allergies Medications hydroCHLOROthiaz augie (HYDRODIURIL) 25 MG tabletIndication s:Routine general medical examination at a health care facility TAKE 1 TABLET(25 MG) BY MOUTH EVERY MORNING 90 tablet 07/31/2023 Active tirzepatide (ZEPBOUND) 2.5 MG/0.5ML injectionIndicat ions:Weight Loss Inject 2.5 mg into the skin once a week. Indications: Weight Loss 2 mL 1 03/30/2024 Active Active Problems Problem Noted Date Diagnosed Date Encounter for screening for malignant neoplasm o f colon 11/05/2022 Overview (11/05/2022): Added automatically from request for surgery [id number] Overweight 12/02/2017 Fatigue 10/23/2017 Leg cramp 04/06/2017 Generalized anxiety disorder 03/02/2017 Anxiety and depression 03/02/2017 Family History Medical History Relation Comments car accident Father Cancer Mother Breast Cancer Neg Hx Relation Status Comments Father Mother Social History Tobacco Use Types Packs/Day Years Used Date Smoking Tobacco: Former Cigarettes Smokeless Tobacco: Never Tobacco Cessation:Counseling Given: Not Answered Alcohol Use Standard Drinks/Week Comments Yes 0 (1 standard drink = 0.6 oz pur e alcohol) Socially PHQ-2 Answer Date Recorded Patient Health Questionnaire-2 Score 0 04/17/2023 Comments No Sex and Gender Information Value Date Recorded Sex Assigned at Female 12/26/2024 6:59 AM CDT Legal Sex Female 7:08 PM CDT Gender Identity Female 09/08/2022 6:04 AM BRICKLAYER Sexual Orientation Straight 09/08/2022 6: 04 AM BRICKLAYER Last Filed Vital Signs Vital Sign Reading Time Taken Comments Blood Pressure 160/86 03/30/2024 3:09 PM CDT Pulse 65 03/30/2024 3:08 PM CDT Temperature 36.9 C (98.4 F) 03/30/2024 3:08 PM CDT Respiratory Rate 18 03/30/2024 3:08 PM CDT Oxygen Saturation 99% 03/30/2024 3:08 PM CDT Inhaled Oxygen Concentration - - Weight 106.6 kg (235 lb) 03/30/2024 3:08 PM CDT Height 160 cm (5' 3 ) 03/30/2024 3:08 PM CDT Body Mass Index 41.63 03/30/2024 3:08 PM CDT Plan of Treatment Upcoming Encounters Date Type Department Care Team (Late st Contact Info) Description 02/02/2025 2:00 PM CDT Office Visit [facility] Family & Internal Medicine - [place] [id number] [place] [address] Dilia Rivers, [facility] [id number] [place] [address], [address] [place] [address] Health Maintenance Due Date Last Done Comments Hepatitis C 1977 DTaP, Tdap and Td Vaccines ( 1 - Tdap) 1978 Zoster Vaccines (1 of 2) 2009 RSV Immunization or 60+ Years (1 - Risk 60-74 years 1-dose series) 2019 COVID-19 Vaccine (1 - 2023-2 5 season) 2024 Pneumococcal Vaccine: 65+ Years (1 of 1 - PCV) 2024 Influenza Adult (#1) 2024 PHQ-2 (Physician [place]) 10/19/2024 04/17/2023 Mammogram Screening 05/23/2026 05/23/2024 Colorectal Cancer Screening Colonoscopy (10 Years) 12/12/2032 12/12/2022, 12/12/2022 Dexa Scan (General) Completed 05/23/2024 Meningococcal B Vaccine Aged Out No l onger eligible based on patient's age to complete this topic Meningococcal Vaccine Aged Out No shoaib janice eligible based on patient's age to complete this topic Pneumococcal Vaccine: Pediatrics (0 to 5 Years) and At-Risk Patients (6 to 64 Years) Aged Out No longer eligible b ased on patient's age to complete this topic RSV Immunizations Under 20 Months Aged Out No longer eligible b ased on patient's age to complete this topic Procedures Procedure Name Priority Date/Time Associated Diagnosis Comments BONE DENSITY/DEXA Routine 05/23/2024 11: 27 AM CDT Menopausal state MG SCREENING W RAYMOND MARIANO DIGI Routine 05/23/2024 11:22 AM CDT Encounter for screening mammogram for malignant neoplasm of breast Encounter for screening for malignant neoplasm of cervix Screening for HPV (human papillomavirus) COLONOSCOPY Routine 12/12/2022 8:41 AM BRICKLAYER from Last 3 Months or Most Recently Relevant to Health Maintenance Results * BONE DENSITY/DEXA (05/23/2024 11:27 AM CDT) Anatomical Region Laterality Modality Bone Bone Density 05/25/2024 5:59 AM CDT Impressions 05/25/2024 6:01 AM CDT IMPRESSION: WHO Classification: Normal RECOMMENDATIONS: All patients should ensure an adequate intake of dietary calcium and vitamin D. The NOF recommend adults under the age of 50 need 1000 mg of calcium and 400-800 IU of vitamin D daily. Effective therapy for the prevention and treatment of osteoporosis include bisphosphonates. Follow-up: People with diagnosed cases of osteoporosis or at high risk for fracture should have regular bone mineral density test. For patients eligible for Medicare, routine testing is allowed once every 2 years. Testing frequency can be increased to one year for patients who have rapidly progressing disease, those who are receiving or discontinuing medical therapy to restore bone mass, or have additional risk factors. Referred By: VIOLETA SUTHERLAND Interpreted By: Fernando Umanzor MD, 05/25/2024 5:59 AM Narrative 05/25/2024 6:01 AM CDT EXAMINATION: BONE DENSITY/DEXA INDICATIONS: N 95.1. Postmenopausal. COMPARISON: None TECHNIQUE: DEXA bone mineral density evaluation was performed in the AP projection over the lumbar spine and both hips utilizing standard imaging techniques. ASSESSMENT: The BMD measured at the AP spine L1-L4 is 1.089 g/cm? with a T-score of 0.4. The BMD measured at the left femoral neck is 0.744 g/cm? with a T-score of -0.9. The BMD measured at the left hip is 0.914 g/cm? with a T-score of 1.2. The BMD measured at the right distal third of forearm is 0.570 g/cm? with a T- score of -2.0. The BMD measured at the total right forearm is 0.463 g/cm? with a T-score of - 2.0. FRAX 10-year fracture risk: Not reported as all T scores are at or above -1.0. Procedure Note Fernando Umanzor MD - 05/25/2024 EXAMINATION: BONE DENSITY/DEXA INDICATIONS: N 95.1. Postmenopausal. COMPARISON: None TECHNIQUE: DEXA bone mineral density evaluation was performed in the APprojection over the lumbar spine and both hips utilizing standard imagingtechniques. ASSESSMENT: The BMD measured at the AP spine L1-L4 is 1.089 g/cm? with a T-score of0.4. The BMD measured at the left femoral neck is 0.744 g/cm? with a T-score of-0.9. The BMD measured at the left hip is 0.914 g/cm? with a T-score of 1.2. The BMD measured at the right distal third of forearm is 0.570 g/cm? witha T- score of -2.0. The BMD measured at the total right forearm is 0.463 g/cm? with a T-scoreof - 2.0. FRAX 10-year fracture risk: Not reported as all T scores are at or above -1.0. IMPRESSION: WHO Classification: Normal RECOMMENDATIONS: All patients should ensure an adequate intake of dietary calcium andvitamin D. The NOF recommend adults under the age of 50 need 1000 mg ofcalcium and 400-800 IU of vitamin D daily. Effective therapy for theprevention and treatment of osteoporosis include bisphosphonates. Follow-up: People with diagnosed cases of osteoporosis or at high risk for fractureshould have regular bone mineral density test. For patients eligible forMedicare, routine testing is allowed once every 2 years. Testing frequencycan be increased to one year for patients who have rapidly progressingdisease, those who are receiving or discontinuing medical therapy torestore bone mass, or have additional risk factors. Referred By: VIOLETA SUTHERLAND Interpreted By: Fernando Umanzor MD, 05/25/2024 5:59 AM Violeta Sutherland RECORD CHANGER ASSEMBLER DEXA Final Result * MG SCREENING W RAYMOND MARIANO DIGI (05/23/2024 11:22 AM CDT) Anatomical Region Laterality Modality Breast Bilateral Mammography 05/30/2024 4:21 PM CDT Impressions 05/30/2024 4:25 PM CDT ===== IMPRESSION: ===== 1. Stable mammographic appearance with no new findings to suggest malignancy in either breast. Assessment: ACR BI-RADS 2 - BENIGN FINDING(S) Recommendation: 1:Routine Screening Bilateral Comments: Ordered By: VIOLETA KIM Interpreted By: Bernadette Swift, 05/30/2024 4:21 PM Narrative 05/30/2024 4:25 PM CDT EXAMINATION: Digital bilateral screening mammogram with 3-D tomosynthesis EXAM DATE/TIME: 05/23/2024 10:39 AM REASON FOR EXAM: Routine screening Benign left breast biopsy in 2020 COMPARISON: 05/12/2023.. 03/05/2022 Technique: Digital screening mammography of both breasts was performed in addition to 3-D Tomosynthesis technique. This study was read with the assistance of a computer-aided detection system. Tissue density: There are scattered areas of fibroglandular density. Findings: Left breast biopsy clip. There is no new focal asymmetry, dominant mass lesion, area of skin thickening, or cluster of suspicious appearing calcifications in either breast to suggest malignancy. Violeta Kim RECORD CHANGER ASSEMBLER MAMMO Final Resul t from Last 3 Months or Most Recently Relevant to Health Maintenance Insurance Care Teams Manager Of Training And Development Relationship Specialty Start Date End Date Dunia Velarde PA-C PCP - General PHYSICIAN COSTUME DESIGN TEACHER 04/17/23
--- OUTSIDE RECORDS SUMMARY | 2025-01-11 14:26 | XMS_ITS | Encounter Summary ---
Author Organization [facility] Address [address] [place] [address] Care Team Providers Care Patent Drafter Name Role Phone Dunia Velarde PA-C Primary Care Provider [phone] Encounter Details Date Type Department Care Team (Late Contact Info) Description 03/10/2023 [employer] Message Enc [facility] Medical [facility] Family & Internal Medicine [address] [address] [employer], [facility] Provider Appointment Social History Tobacco Use Types Packs/Day Years Used Date Smoking Tobacco: Former Cigarettes Smokeless Tobacco: Never Alcohol Use Standard Drinks/Week Comments Yes 0 (1 standard drink = 0.6 oz pur e alcohol) Socially PHQ-2 Answer Date Recorded PHQ-2 Score - If the patient scores above 3, please move on to questions 3-9 4 09/10/2022 Comments No Sex and Gender Information Value Date Recorded Sex Assigned at Female 12/26/2024 6:59 AM CDT Legal Sex Female 7:08 PM CDT Gender Identity Female 09/08/2022 6:04 AM FOOD AND BEVERAGE INTERN Sexual Orientation Straight 09/08/2022 6: 04 AM FOOD AND BEVERAGE INTERN COVID-19 Exposure Response Date Recorded In the last 10 days, have yo u been in contact with someone who was confirmed or suspected to have Coronavirus/COVID-19? No / Unsure 03/11/2023 3:15 PM CDT documented as of this encounter Plan of Treatment Upcoming Encounters Date Type Department Care Team (Late Contact Info) Description 02/02/2025 2:00 PM CDT Office Visit [facility] Medical [facility] Family & Internal Medicine - [place] [address] [place] [address] Dilia Rivers, [facility] [address] [facility], [address] [place] [address] documented as of this encounter Visit Diagnoses Not on filedocumented in this encounter Additional Health Concerns Assessment Noted Time PHQ-9 Depression Total Score: 14 09/10/ 022 1:14 PM FOOD AND BEVERAGE INTERN documented as of this encounter Care Teams Patent Drafter Relationship Specialty Start Date End Date Dunia Velarde PA-C PCP - General PHYSICIAN FINISH PHOTOGRAPHER 04/17/23 documented as of this encounter
--- OUTSIDE RECORDS SUMMARY | 2025-01-11 14:26 | XMS_ITS | Encounter Summary ---
Author Organization [facility] Address [facility] [place] [address] Care Team Providers Care Display Screen Fabricator Name Role Phone Susana Marinelli MD Primary Care Provider [phone] Dunia Velarde PA-C Primary Care Provider [phone] Encounter Details Date Type Department Care Team (Late st Contact Info) Description 09/22/2022 [employer] Message Enc [facility] Medical Group Family & Internal Medicine [facility] [address] [place] [address] [place] [address] [place] [address] Blood results and hip xrays Social History Tobacco Use Types Packs/Day Years [...] CDT Gender Identity Female 09/08/2022 6:04 AM TYPISTS SUPERVISOR Sexual Orientation Straight 09/08/2022 6: 04 AM TYPISTS SUPERVISOR COVID-19 Exposure Response Date Recorded In the last 10 days, have yo u been in contact with someone who was confirmed or suspected to have Coronavirus/COVID-19? No / Unsure 09/10/2022 1:06 PM TYPISTS SUPERVISOR documented as of this encounter Plan of Treatment Upcoming Encounters Date Type Department Care Team (Late st Contact Info) Description 02/02/2025 2:00 PM CDT Office Visit [facility] Medical Group Family & Internal Medicine [facility] [address] [place] [address] Dilia Rivers, [facility] [address] [facility], [address] [place] [address] documented as of this encounter Visit Diagnoses Not on filedocumented in this encounter Additional Health Concerns Assessment Noted Time PHQ-9 Depression Total Score: 14 022 1:14 PM TYPISTS SUPERVISOR documented as of this encounter Care Teams Display Screen Fabricator Relationship Specialty Start Date End Date Susana Marinelli MD PCP - General INTERNAL MEDICINE 04/03/20 01/23/23 Dunia Velarde PA-C PCP - General PHYSICIAN [place] REFRIGERATION TECHNICIAN 04/17/23 documented as of this encounter
--- OUTSIDE RECORDS SUMMARY | 2025-01-11 14:26 | XMS_ITS | Clinical Summary ---
Author Organization [facility] Address [address] [facility] [place] [place] [address] Care Team Providers Care Folder Gluer Operator Name Role Phone Unavailable Primary Care Provider Unavailabl e Source Comments [facility],non-owned Affiliates and Associated Physician Practices is amultiple site organization consisting of ambulatory clinics and hospital sitesin [place], [place], [place] and [place]. This disclosure is being madepursuant to the Care Everywhere program and may not contain all information available regarding this patient. Last updated 18.[facility] [employer] Social History Tobacco Use Types Packs/Day Years Used Date Smoking Tobacco: Never Assessed Sex and Gender Information Value Date Recorded Sex Assigned at Not on file Gender Identity Not on file Sexual Orientation Not on file Plan of Treatment Health Maintenance Due Date Last Done Comments BONE DENSITY TESTING 1959 COLOGUARD (AGES 45-75) - COL ON CA SCREENING 1959 CT COLONOGRAPHY - COLON CA SCREENING 1959 FIT - COLON CA SCREENING 1959 FLEX SIG - COLON CA SCREENING 1959 MAMMOGRAM 1959 HIV SCREENING 1974 HEPATITIS C SCREENING 06/29/1977 DTAP/TDAP/TD VACCINES (1 - Tdap) 1978 PNEUMOCOCCAL VACCINE 50+ (1 of 1 - PCV) 2009 ZOSTER VACCINE (1 of 2) 2009 LIPID TESTING 03/26/2014 03/26/2009 COLON MONITORING 09/28/2019 09/28/2009 COLONOSCOPY - COLON CA SCREENING 09/28/2019 09/28/20 09 Colorectal Cancer Screening 09/28/2019 COVID-19 VACCINE ( - 2023-2 5 season) 2024 INFLUENZA VACCINE (#1) 2024 DEPRESSION SCREENING 10/19/2024 Respiratory Syncytial Virus (RSV) Vaccine Pt: or over 60 yrs (1 - 1-dose 75+ series) 2034 HEPATITIS B VACCINE Aged Out No longe r eligible based on patient's age to complete this topic HIB VACCINE Aged Out No longer eligi ble based on patient's age to complete this topic HPV VACCINE Aged Out No longer eligi ble based on patient's age to complete this topic MENINGOCOCCAL (Group B) VACC INE SHARED DECISION-MAKING Aged Out No longer eligibl e based on patient's age to complete this topic MENINGOCOCCAL GROUPS A/C/Y/W VACCINE Aged Out No longer eligible b ased on patient's age to complete this topic Procedures Procedure Name Priority Date/Time Associated Diagnosis Comments ENDOSCOPY, COLON, SCREENING Routine 09/28/2009 LIPID PROFILE 03/26/2009 10:16 AM CDT from Last 3 Months or Most Recently Relevant to Health Maintenance Results * ENDOSCOPY, COLON, SCREENING (09/28/2009) Cem Hardin MD GI PROCEDURE HUAN SHAIKH * LIPID PROFILE (03/26/2009 10:16 AM CDT) Triglycerides 136 <150 mg/dL [facility] Comment: Test Performed at: [facility] [place] [id number] [place] [id number] CHRIS GARZON MD Cholesterol 198 125 - 200 mg/dL [facility] HDL Cholesterol 52 > OR = 46 mg/dL [facility] LDL Calculated 119 <130 mg/dL (calc) [facility] Comment: DESIRABLE RANGE <100 MG/DL FOR PATIENTS WITH CHD OR DIABETES AND <70 MG/DL FOR DIABETIC PATIENTS WITH KNOWN HEART DISEASE. CHOL/HDLC RATIO 3.8 < OR = 5.0 (calc) [facility] 03/26/2009 10:1 6 AM CDT 03/27/2009 4:44 AM CDT Cem Hardin MD LAB - CHEMISTRY O RDERABLES [facility] [address] [place] [address] from Last 3 Months or Most Recently Relevant to Health Maintenance
--- OUTSIDE RECORDS SUMMARY | 2025-01-11 14:26 | XMS_ITS | Continuity of Care Document ---
Author Organization [facility] Address [address] [address] [place] [address] Phone Care Team Providers Care Nail Sticker Name Role Phone Montrell Hernandez MD, FACS Unavailable Unavailab le Advance Directives Directive Yes / No Effective Date File Name No Information Encounters Encounter Description Practice Location Reason(s) For Visit Diagnoses Date Provider Providers Copied on Encounter [facility], [address] [facility] [address], [place], [place], [id number], [place] tel:[phone] [facility] No Information 0 [address] Stock. [address] [facility] ([address], [place], [place], [id number], [place]. tel:[phone] Referring Provider: Gela Corbett OD F, [address] [place] [address], [address]. tel:[phone] Family History Family Member Type Diagnosis Age At Onset No Information Payers Payer name Insurance type Covered democrat ID Authoriza tion(s) No Information Social History Type Description Quantity Date Captured Comments Sex Female Smoking Status No Information Chief Complaint And Reason For Visit No Information Reason For Referral Reason For Referral No Information History Of Present Illness Encounter Date Complaint History Of Prese nt Illness No Information Functional Status Date Functional Assessmen t No Information Instructions Date Instruction Additional Infor mation No Information Assessments Type Assessment Date No Information Patient Care Teams Name Effective Dates (start - stop) Status Members No Information
--- OUTSIDE RECORDS SUMMARY | 2025-01-11 14:26 | XMS_ITS | Encounter Summary ---
Author Organization [facility] Address [facility] [place] [address] Care Team Providers Care Sap Treasury Consultant Name Role Phone Dunia Velarde PA-C Primary Care Provider [phone] Encounter Details Date Type Department Care Team (Late st Contact Info) Description 04/06/2024 VenueAgent Message [facility] Family & Internal Medicine [address] [address] [facility] Provider medications Social History Tobacco Use Types Packs/Day Years [...] CDT Gender Identity Female 09/08/2022 6:04 AM SENIOR FINANCIAL Sexual Orientation Straight 09/08/2022 6: 04 AM SENIOR FINANCIAL documented as of this encounter Progress Notes * Dunia Velarde PA-C - 04/11/2024 12:12 PM CDT Would she like to either retry the bupropion (she was on this many years ago) at 150 mg daily? * Dunia Velarde PA-C - 04/11/2024 12:12 PM CDTFrom: Pam Duron To: Karissa aMnning Sent: 04/06/2024 4:10 PM CDT Subject: medications Reji Shi, I just wanted to reach out to you and let you know that we completed a PA on the medication zepbound. Unfortunately your insurance company will not cover weight loss medication. With that said Dunia would like to know if you would like to try topamax versus increasing the wellbutin? Please let me know wha t you decide. documented in this encounter Plan of Treatment Upcoming Encounters Date Type Department Care Team (Late st Contact Info) Description 02/02/2025 2:00 PM CDT Office Visit [facility] Family & Internal Medicine [address] [address] Dilia Rivers, [facility], [address] [place] [address] documented as of this encounter Visit Diagnoses Not on filedocumented in this encounter Additional Health Concerns Assessment Noted Time PHQ-9 Depression Total Score: 14 09/10/ 022 1:14 PM SENIOR FINANCIAL documented as of this encounter Care Teams Sap Treasury Consultant Relationship Specialty Start Date End Date Dunia Velarde PA-C PCP - General PHYSICIAN CHAU[employer] LIMOUSINE 04/17/23 documented as of this encounter
--- OUTSIDE RECORDS SUMMARY | 2025-01-11 14:26 | XMS_ITS | Encounter Summary ---
Author Organization [facility] Address [address] [place] [place] [address] Care Team Providers Care Services Rep Name Role Phone Unavailable Primary Care Provider Unavailabl e Encounter Details Date Type Department Care Team (Late st Contact Info) Description 02/29/2020 Lab Requisition [facility] DermPath Lab [address] [facility], [place] [address] Mayra Elder DO [address] [facility] [address] [place] [address] Social History Tobacco Use Types Packs/Day Years Used Date Smoking Tobacco: Never Assessed Sex and Gender Information Value Date Recorded Sex Assigned at Not on file Gender Identity Not on file Sexual Orientation Not on file documented as of this encounter Plan of Treatment Not on file documented as of this encounter Procedures Procedure Name Priority Date/Time Associated Diagnosis Comments DERMATOPATHOLOGY Routine 02/28/2020 12:0 0 AM CDT documented in this encounter Results * DERMATOPATHOLOGY (02/28/2020 12:00 AM CDT) Case Report Dermatopathology Report Case: [id number] Authorizing Provider: Mayra Elder DO Collected: 02/28/2020 12:00 AM Ordering Location: [facility] Derm[facility] Lab Received: 02/29/2020 11:41 AM Pathologist: Korina Lopez MD Specimen: Skin, right ant LE 0 1:22 PM CDT DERMATOPATHOLOGY LABORATORY Final Diagnosis Specimen A. SKIN, right ant LE: BASAL CELL CARCINOMA, SUPERFICIAL MULTIFOCAL ([id number]) 0 1:22 PM CDT DERMATOPATHOLOGY LABORATORY Clinical History R/O NMSC. 0 1:22 PM CDT DERMATOPATHOLOGY LABORATORY Gross Description Specimen A: Received is one formalin filled container labeled with the patient's name and designated right ant LE. The specimen consists of a shave measuring [id number]. Jar 0. 0 1:22 PM CDT DERMATOPATHOLOGY LABORATORY Microscopic Description Specimen A. SKIN, right ant LE: Attached to the undersurface of the epidermis, there are small aggregates of basaloid cells with a high nuclear to cytoplasmic ratio and peripheral palisading. 0 1:22 PM CDT DERMATOPATHOLOGY LABORATORY Disclaimer An external and internal positive and negative controls are appropriate for the histochemical, immunohistochemical and immunofluorescence stain(s) in this case (if any), except where stated explicitly. The performance characteristics of the stain(s) cited in this report were developed and its performance characteristic determined by the Dermatopathology Laboratory at [facility], directed by Dr. Jerica Kahn. These tests need not be, and therefore are not, approved by the [place] Food and Drug Administration. The tests are used for clinical purposes. Billing Codes Specimen Charges Stain Charges 10178 1 0 1:22 PM CDT DERMATOPATHOLOGY LABORATORY Embedded Images 0 1:22 PM CDT DERMATOPATHOLOGY LABORATORY Pathology/Cytolog y TISSUE SPECIMEN FROM SKIN / Unknown 02/28/2020 02/29/2020 11:41 AM CDT Mayra Elder DO LAB - PATHOLOGY/C YTOLOGY ORDERABLES DERMATOPATHOLOGY LABORATORY [facility] - Department of Dermatology [address] [facility], 5th [place] [address], [facility] [phone] documented in this encounter Visit Diagnoses Not on filedocumented in this encounter
--- OUTSIDE RECORDS SUMMARY | 2025-01-11 14:26 | XMS_ITS | Encounter Summary ---
Author Organization [facility] Address [facility] [place] [address] Care Team Providers Care Soft Water Mechanic Name Role Phone Dunia [place] PA-C Primary Care Provider [phone] Encounter Details Date Type Department Care Team (Late st Contact Info) Description 04/06/2024 Simpirica Spine Message [facility] Family & Internal Medicine [address] [address] [place], [facility] Provider [place] Social History Tobacco Use Types Packs/Day Years [...] CDT Gender Identity Female 09/08/2022 6:04 AM EARLY HEAD START TEACHER Sexual Orientation Straight 09/08/2022 6: 04 AM EARLY HEAD START TEACHER documented as of this encounter Plan of Treatment Upcoming Encounters Date Type Department Care Team (Late st Contact Info) Description 02/02/2025 2:00 PM CDT Office Visit [facility] Family & Internal [address] [address] Dilia Rivers, PASSENGER BOOKING CLERK-BC [address] [facility], [address] [place] [address] documented as of this encounter Visit Diagnoses Not on filedocumented in this encounter Additional Health Concerns Assessment Noted Time PHQ-9 Depression Total Score: 14 09/10/ 022 1:14 PM EARLY HEAD START TEACHER documented as of this encounter Care Teams Soft Water Mechanic Relationship Specialty Start Date End Date Dunia [place] PA-C PCP - General PHYSICIAN SUPERVISOR GENERAL 04/17/23 documented as of this encounter
--- OUTSIDE RECORDS SUMMARY | 2025-01-11 14:26 | XMS_ITS | Encounter Summary ---
Author Organization [facility] Address [address] [place] [address] Care Team Providers Care Oim Architect Name Role Phone Susana Marinelli MD Primary Care Provider [phone] Dunia [place] PA-C Primary Care Provider [phone] Encounter Details Date Type Department Care Team (Late st Contact Info) Description 09/12/2022 TrademarkFlyt Message Enc [facility] Family & Internal Medicine [facility] [address] [place] [address] [place] [address] [place] [address] Handicap sign for car mirror Social History Tobacco Use Types Packs/Day Years [...] CDT Gender Identity Female 09/08/2022 6:04 AM RESEARCH FOOD TECHNOLOGIST Sexual Orientation Straight 09/08/2022 6: 04 AM RESEARCH FOOD TECHNOLOGIST COVID-19 Exposure Response Date Recorded In the last 10 days, have yo u been in contact with someone who was confirmed or suspected to have Coronavirus/COVID-19? No / Unsure 09/10/2022 1:06 PM RESEARCH FOOD TECHNOLOGIST documented as of this encounter Plan of Treatment Upcoming Encounters Date Type Department Care Team (Late st Contact Info) Description 02/02/2025 2:00 PM CDT Office Visit [facility] Family & Internal Medicine [facility] [address] [place] [address] Dilia Rivers, [facility] [address] [facility], [address] [place] [address] documented as of this encounter Visit Diagnoses Not on filedocumented in this encounter Additional Health Concerns Assessment Noted Time PHQ-9 Depression Total Score: 14 022 1:14 PM RESEARCH FOOD TECHNOLOGIST documented as of this encounter Care Teams Oim Architect Relationship Specialty Start Date End Date Susana Marinelli MD PCP - General INTERNAL MEDICINE 04/03/20 01/23/23 Dunia [place] PA-C PCP - General PHYSICIAN DIRECTOR HARDWARE 04/17/23 documented as of this encounter
--- OUTSIDE RECORDS SUMMARY | 2025-01-11 14:26 | XMS_ITS | Encounter Summary ---
Author Organization [facility] Address [facility] [place] [address] Care Team Providers Care Provisioning Analyst Name Role Phone Dunia [place] PA-C Primary Care Provider [phone] Encounter Details Date Type Department Care Team (Late st Contact Info) Description 07/22/2023 SimpliSafe Home Security Message Enc [facility] Family & Internal Medicine [facility] [address] [place] [address] Dunia [place] PA-C [facility] [place] [address] Pain Medication for hip and knees Social History Tobacco Use Types Packs/Day Years [...] CDT Gender Identity Female 09/08/2022 6:04 AM BANANA LOADER Sexual Orientation Straight 09/08/2022 6: 04 AM BANANA LOADER documented as of this encounter Progress Notes * Dunia [place] PA-C - 07/22/2023 3:56 PM CDT Meloxicam sent to pharmacy. * Radha Grigsby RN - 07/22/2023 3:42 PM CDT Please advise. It appears patient has also used diclofenac for pain. documented in this encounter Plan of Treatment Upcoming Encounters Date Type Department Care Team (Late st Contact Info) Description 02/02/2025 2:00 PM CDT Office Visit [facility] Family & Internal Medicine [facility] [address] [place] [address] Dilia Rivers, [facility] [address] [facility], [address] [place] [address] documented as of this encounter Visit Diagnoses Diagnosis Multiple joint pain- Primary Pain in joint, multiple sites documented in this encounter Additional Health Concerns Assessment Noted Time PHQ-9 Depression Total Score: 14 09/10/ 022 1:14 PM BANANA LOADER documented as of this encounter Care Teams Provisioning Analyst Relationship Specialty Start Date End Date Dunia [place] PA-C PCP - General PHYSICIAN BUCKLE SORTER 04/17/23 documented as of this encounter
--- OUTSIDE RECORDS SUMMARY | 2025-01-11 14:26 | XMS_ITS | CONTINUITY OF CARE DOCUMENT ---
Author Name lexis pires Address Unknown Organization [facility] Address [address] [facility] [address] [place] [address] Phone [phone] Care Team Providers Care Green Building Materials Designer Name Role Phone KORY CAMPOS, DAVIS Owen Unavailable DAVIS HORN MD Unavailable INSURANCE PROVIDERS Payer name Policy type / Coverage type Union red libertarian ID [employer] [facility] Other [id number]
--- OUTSIDE RECORDS SUMMARY | 2025-01-11 14:26 | XMS_ITS | Clinical Summary ---
Author Organization [facility] Address [address] [place] [address] Phone Care Team Providers Care Industrial Maintenance Tech Name Role Phone Susana Marinelli MD Primary Care Provider [phone] Medications No known medications Active Problems Problem Noted Date Diagnosed Date Breast calcification, left 04/16/2022 Family History Medical History Relation Name Comments Asthma Brother 1 Joseph Soliman Since childhood Liver Disease Brother 2 Edouard Lenz Alcoholic - P/ A 2020 Pancreatic Cancer Mother Esha Lenz Passed a way 2009 Lung Cancer Sister Linh Silverio Lifelong smoker P/A 2011 Relation Name Status Comments Brother 1 Joseph Soliman Brother 2 Edouard Lenz Mother Esha Lenz Sister Linh Silverio Social History Tobacco Use Types Packs/Day Years Used Date Smoking Tobacco: Former Cigarettes 2 20 0 11/15/2000 - 11/15/2020 Comments:Smoked [id number], s tarted again 2016, Quit 11/15/2020 Alcohol Use Standard Drinks/Week Comments Yes 5 (1 standard drink = 0.6 oz pur e alcohol) Comments No Sex and Gender Information Value Date Recorded Sex Assigned at Not on file Legal Sex Female 12:19 PM CDT Gender Identity Not on file Sexual Orientation Not on file Last Filed Vital Signs Vital Sign Reading Time Taken Comments Blood Pressure 152/84 04/16/2022 1:39 PM CDT Pulse 68 04/16/2022 1:39 PM CDT Temperature - - Respiratory Rate - - Oxygen Saturation - - Inhaled Oxygen Concentration - - Weight 115.7 kg (255 lb) 04/16/2022 1:39 PM CDT Height 160 cm (5' 3 ) 04/16/2022 1:39 PM CDT Body Mass Index 45.17 04/16/2022 1:39 PM CDT Plan of Treatment Health Maintenance Due Date Last Done Comments DTAP/TDAP/TD VACCINES (1 - Tdap) 1978 COLORECTAL SCREENING 2004 Colorectal Cancer Screening 2004 FIT-DNA Q 3 years 2004 FIT/FOBT Q 1 year 2004 Flex Sig/CT Colonography Q 5 years 2004 PNEUMOCOCCAL VACCINE 50+ YEA RS (1 of 1 - PCV) 2009 ZOSTER VACCINE (1 of 2) 2009 BREAST CANCER SCREENING 03/25/2023 03/25/20, 03/05/2022, 07/01/2019, Additional history exists INFLUENZA VACCINE (#1) 2024 OSTEOPOROSIS SCREENING 2024 RSV VACCINE (60+ or ) (1 - 1-dose 75+ series) 2034 Procedures Procedure Name Priority Date/Time Associated Diagnosis Comments MAMMO DIAG UNI LEFT 3D RAYMOND W OR WO CAD Routine 03/25/2022 from Last 3 Months or Most Recently Relevant to Health Maintenance Results * MAMMO DIAG UNI LEFT 3D RAYMOND W OR WO CAD (03/25/2022) Anatomical Region Laterality Modality Breast Left Mammography us Abstract Provider MAMMO ORDERABLES Edited Result - Final from Last 3 Months or Most Recently Relevant to Health Maintenance Insurance BCBS BLUE PREFERRED Care Teams Industrial Maintenance Tech Relationship Specialty [place] [address] [phone] PCP - General Internal Medicine 04/16/22
--- OUTSIDE RECORDS SUMMARY | 2025-01-11 14:26 | XMS_ITS | Encounter Summary ---
Author Organization [facility] Address [facility] [place] [address] Care Team Providers Care Networks Software Consultant Name Role Phone Susana Marinelli MD Primary Care Provider [phone] Dunia [place] PA-C Primary Care Provider [phone] Encounter Details Date Type Department Care Team (Late st Contact Info) Description 09/17/2022 Sky Storage Message Enc [facility] Family & Internal Medicine [facility] [address] [place] [address] [place] [address] [place] [address] Knee and ankle xrays 12-20-2019 Social History Tobacco Use Types Packs/Day Years [...] CDT Gender Identity Female 09/08/2022 6:04 AM CORPORATE PARALEGAL Sexual Orientation Straight 09/08/2022 6: 04 AM CORPORATE PARALEGAL COVID-19 Exposure Response Date Recorded In the last 10 days, have yo u been in contact with someone who was confirmed or suspected to have Coronavirus/COVID-19? No / Unsure 09/10/2022 1:06 PM CORPORATE PARALEGAL documented as of this encounter Plan of Treatment Upcoming Encounters Date Type Department Care Team (Late st Contact Info) Description 02/02/2025 2:00 PM CDT Office Visit [facility] Family & Internal Medicine [facility] [address] [place] [address] Dilia Rivers, [facility] [address] [facility], [address] [place] [address] documented as of this encounter Visit Diagnoses Not on filedocumented in this encounter Additional Health Concerns Assessment Noted Time PHQ-9 Depression Total Score: 14 022 1:14 PM CORPORATE PARALEGAL documented as of this encounter Care Teams Networks Software Consultant Relationship Specialty Start Date End Date Susana Marinelli MD PCP - General INTERNAL MEDICINE 04/03/20 01/23/23 Dunia [place] PA-C PCP - General PHYSICIAN ENGINEERING VICE PRESIDENT 04/17/23 documented as of this encounter
== END 2025-01-11 13:11 | disposition home or self-care (01) ==
PROVIDERS: PCP Orthopaedic Surgery; Visit Provider Orthopaedic Surgery
DX: Z96.641 Presence of right artificial hip joint (principal)
CPT/HCPCS: 73502